=== PATIENT | female | born 1980 | race Caucasian/White ===

== ENCOUNTER → 2016-06-12 | Outpatient (CLI) | payer BC ==
[~2016-06-12] MED LIST: BCPILLS PO; CHOL1CAP57 PO; DICY10CA12 PO; ERGO500037 PO; FLUO0.05 TOP; GLGKIT; INSPMPHMLG; LEVO100T PO; MULTTAB5 PO; OXYC1TAB3 PO; SYN137 PO
[2016-06-12 11:08] LABS: BLOOD UREA NITROGEN 12 mg/dl (7-18); CREATININE 0.87 mg/dl (0.60-1.20)
== END | disposition home or self-care (01) ==
LOC: C.LAB 10:13
PROVIDERS: ATTEND Orthopaedic Surgery
DX: Z01.812 Encounter for preprocedural laboratory examination (principal)

== ENCOUNTER 2017-01-20 22:10 | Emergency (ER) | payer BC, OTHER ==
[~2017-01-20] VITALS: Ht 167.6 cm; Wt 83.9 kg
[~2017-01-20 22:10] MED LIST changes: -BCPILLS PO; -ERGO500037 PO; -OXYC1TAB3 PO; -SYN137 PO
[2017-01-20 22:19] VITALS: TEMP 36.3; Ht 167.6 cm; Wt 83.9 kg
[2017-01-20] MEDS ORDERED: BCPILLS PO (22:53)
[2017-01-20] MEDS ORDERED: ERGO500037 PO (22:53)
[2017-01-20] MEDS ORDERED: SYN137 PO (22:53)
[2017-01-20] MEDS ORDERED: OXYCODONE/ACETAMINOPHEN 5-325 TAB PO STA (23:19)
[2017-01-20] MEDS ORDERED: ONDANSETRON 4MG OD TAB PO STA (23:19)
[2017-01-21] MEDS ORDERED: OXYC1TAB3 PO (01:06)
[2017-01-21 01:13] VITALS: BP 146/85; PULSE 79; O2SAT 99
[2017-01-21] MEDS ORDERED: OXYCODONE IR HOME PACK PO ONE (01:15)
[2017-01-21] MEDS ORDERED: ONDANSETRON HOME PACK 4MG OD TAB PO ONE (01:15)
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
== END 2017-01-21 01:15 | disposition home or self-care (01) ==
LOC: C.EDB 22:12 → C.EDA 01-21 01:15
DX: M54.2 Cervicalgia (principal); R51 Headache; M25.561 Pain in right knee; M25.562 Pain in left knee; V43.52XA Car driver injured in collision with other type car in traffic accident, initial encounter; Z79.899 Other long term (current) drug therapy

== ENCOUNTER → 2017-02-25 | Outpatient (CLI) | payer OTHER ==
[~2017-02-25] MED LIST changes: +BCPILLS PO; -CHOL1CAP57 PO; -DICY10CA12 PO; +ERGO500037 PO; -FLUO0.05 TOP; -LEVO100T PO; +OXYC-737 PO; +SYN137 PO
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
== END | disposition home or self-care (01) ==
LOC: C.MRIBC 13:02
PROVIDERS: ATTEND Internal Medicine
DX: M54.2 Cervicalgia (principal)

== ENCOUNTER → 2017-03-10 | Outpatient (CLI) | payer OTHER ==
[~2017-03-10] MED LIST changes: -OXYC-737 PO; +OXYC1TAB3 PO
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
== END | disposition home or self-care (01) ==
LOC: C.MAMM 11:31
PROVIDERS: ATTEND Physician Assistant
DX: N64.4 Mastodynia (principal)

== ENCOUNTER → 2017-06-02 | Outpatient (CLI) | payer OTHER | END | disposition home or self-care (01) | LOC: C.PAPS 10:22 | PROVIDERS: ATTEND Obstetrics & Gynecology | DX: Z01.419 Encounter for gynecological examination (general) (routine) without abnormal findings (principal) ==

== ENCOUNTER → 2017-06-02 | Outpatient (CLI) | payer OTHER ==
[~2017-06-02] MED LIST changes: +GADAVIST IV PRN
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
== END | disposition home or self-care (01) ==
LOC: C.MRI 13:17
PROVIDERS: ATTEND Physician Assistant
DX: R42 Dizziness and giddiness (principal)

== ENCOUNTER → 2017-06-16 | Outpatient (CLI) | payer OTHER ==
[~2017-06-16] MED LIST changes: -GADAVIST IV PRN
--- NOTE | 2017-06-16 14:27 | DIAGNOSTIC IMAGING REPORT ---
Study: Fusion CT of sinuses HISTORY: Chronic sinusitis. FINDINGS: Moderate mucosal thickening left ethmoid sinuses. Minimal hypertrophic change of the nasal turbinates. All remaining sinuses are clear. Ostiomeatal units are patent bilaterally. No bony destructive process. Orbital margins are intact. IMPRESSION: 1. Moderate mucosal thickening left ethmoid sinuses. 2. Minimal hypertrophic change of the nasal turbinates. Electronically signed by: Esa Smith M.D. 06/16/2017 2:26 PM Dictated Date/Time: 06/16/2017 2:21 PM
== END | disposition home or self-care (01) ==
LOC: C.CTS 13:28
PROVIDERS: ATTEND Physician Assistant
DX: J32.9 Chronic sinusitis, unspecified (principal)

== ENCOUNTER → 2017-09-16 | Outpatient (CLI) | payer OTHER ==
[~2017-09-16] MED LIST changes: -OXYC1TAB3 PO
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
== END | disposition home or self-care (01) ==
LOC: C.CTS 13:19
PROVIDERS: ATTEND Physician Assistant Medical
DX: R51 Headache (principal)

== ENCOUNTER 2019-03-21 17:30 | Observation (INO) ==
--- NOTE | 2019-03-21 18:02 | Emergency Department Note ---
History of Present Illness General Chief complaint: Abdominal Pain Stated complaint: ABD PAIN Time Seen by Provider: 03/21/19 17:42 History of Present Illness Maximum Pain Intensity: 5 This is a 38-year-old female that presents to the emergency department via private vehicle with complaints of "abdominal pain". The patient states that she was referred here by the PCP. She states that this past Wednesday she developed left upper quadrant abdominal discomfort. It is worse with food. She states that it increased during dinner last night as well. She has associated nausea. No vomiting. She states that today she underwent an outpatient CT scan of the abdomen pelvis which was positive for acute appendicitis therefore prompting her arrival here today. She notes that she also had outpatient labs. She rates his overall discomfort as a 5/10. She has a history of type 1 diabetes as well as hypothyroidism. She also has a history of surgeries of C- section x2 as well as history of back surgery. Home Medications Home Medications Medication Instructions Recorded Confirmed Type acetone (urine) test #25 ea 09/08/18 03/21/19 History blood sugar diagnostic #10 ea 09/08/18 03/21/19 History blood-glucose sensor #3 ea 09/08/18 03/21/19 History blood-glucose transmitter #1 ea 09/08/18 03/21/19 History insulin pump cartridge #5 ea 09/08/18 03/21/19 History insulin syringe-needle U-100 1 mL #10 ea 09/08/18 03/21/19 History 31 gauge x /16" levothyroxine 137 mcg tablet 137 mcg PO QAM #90 tab 09/09/18 03/21/19 History calcium carbonate [Tums] 200 mg PO DIRECTED PRN 03/21/19 03/21/19 History ergocalciferol (vitamin D2) 50,000 units PO .Q2WK 03/21/19 03/21/19 History insulin aspart U-100 [Novolog See Rx Instructions .ROUTE .COMPLEX 03/21/19 03/21/19 History U-100 Insulin aspart] norethindrone-e.estradiol-iron 1 tab PO DAILY 03/21/19 03/21/19 History [03/13 ()] Allergies Allergy/AdvReac Type Severity Reaction Status Date / Time latex Allergy Mild ITCH Verified 03/21/19 18:24 levofloxacin Allergy Mild NIGHTMARES Verified 03/21/19 13:58 morphine Allergy Mild HIVES, Verified 03/21/19 18:24 RINGS AROUND EYES/SWELLING,THROAT SWELLING lisinopril Allergy Unknown . Unverified 03/21/19 13:58 Penicillins AdvReac Mild REDMANS Verified 03/21/19 13:58 REACTION Adhesive Tape TAPE Allergy Unknown . Uncoded 03/21/19 18:24 Pertussis Vaccine Allergy Unknown . Uncoded 03/21/19 18:24 Past Med/Surg History Medical History Abdominal pain, acute, left lower quadrant (Acute) Asthma (Acute) Breast pain (Acute) Constipation (Acute) Diabetes mellitus type 1 (Acute 05/13/12) Diabetes mellitus type 1, controlled (Acute) Liana's thyroiditis (Acute) Headache, migraine (Acute) History of hypertension (Acute) Hypothyroidism (Acute) Post-concussion syndrome (Acute) TMJ syndrome (Acute) Type 1 diabetes mellitus with hypoglycemia (Acute) Vitamin D deficiency (Acute) Surgical History H/O section (Acute 05/13/12) History of oral surgery History of oral surgery History of shoulder surgery Family History Mother Cardiomyopathy Lung cancer COPD (chronic obstructive pulmonary disease) Asthma Hypertension Daughter Asthma Brother Asthma Diabetes Unknown Gallbladder disease Osteoporosis Environmental allergies Social History Feels Safe at Home: Yes Smoking Status: Never smoker Review of Systems A total of 10 systems reviewed and were otherwise negative Physical Exam Vital Signs Vital Signs - 24 hr 03/21/19 17:35 Temperature 36.8 C Temperature Source Oral Pulse Rate 89 Pulse Rhythm Regular Pulse Strength Normal Respiratory Rate 20 Respiratory Effort / Characteristics Non-Labored Spontaneous Respiratory Depth Normal Respiratory Pattern Regular Blood Pressure 138/107 H Blood Pressure Mean 117 Blood Pressure Position Sitting Pulse Oximetry 98 Oxygen Delivery Method Room Air Sepsis Recent Fever Within 48 Hours No Sepsis Action Taken by Nursing No Action Required VITAL SIGNS - Vital signs and nursing notes were reviewed. Stable and afebrile. GENERAL -38-year-old female appearing her stated age who is in no acute distress. Communicates well with provider and answers questions appropriately. SKIN - Without rashes. HEAD - NC/AT. EYES - Sclera anicteric. EARS - No deformities of external structures noted on gross examination bilaterally. MOUTH/OROPHARYNX - Without perioral cyanosis. NECK - Neck with FROM. No nuchal rigidity. LUNGS - Chest wall symmetric without accessory muscle use, intercostals retractions, or central cyanosis. Normal vesicular breath sounds CTA B/L. No wheezes, rales, or rhonchi appreciated. CARDIAC - RRR with S1/S2. No murmur, rubs, or gallops appreciated. ABDOMEN - Abdominal contour normal without pulsations or visible masses. BS normoactive all four quadrants. There is generalized abdominal tenderness that is mostly focused in the left upper quadrant region but she also has tenderness in the right lower quadrant. No palpable masses, hepatosplenomegaly, or ascites noted. EXTREMITIES - No clubbing or peripheral cyanosis. NEUROLOGIC - Cranial nerves II through XII grossly intact. PSYCH - A&O, and cooperates fully with examiner. Pt is very pleasant and interacts well with examiner. Course Administered Medications Meperidine HCl (Demerol) 12.5 mg IV Q5M PRN PRN Reason: PACU Use Only-Pain/Shivering Stop: 03/22/19 02:09 Last Admin: 03/21/19 21:16 Dose: 12.5 mg Documented by: [id number] Discontinued Medications Bupivacaine HCl/Epinephrine Bitart (Sensorcaine/Epinephrine 0.5% Mpf 1:200,000) Confirm Administered Dose 30 ml .ROUTE .STK-MED ONE Stop: 03/21/19 19:44 Last Admin: 03/21/19 20:44 Dose: 20 ml Documented by: [id number] Cefoxitin Sodium 2,000 mg/ (Dextrose) 60 mls @ 100 mls/hr IV ONCE STA Stop: 03/21/19 21:20 Last Admin: 03/21/19 20:21 Dose: 100 mls/hr Documented by: [id number] Medical Decision Making Laboratory Data Lab Results 03/21/19 Range/Units Unknown POC Ur Test NEG (NEG) Imaging Data Radiologist's Impression: CT abd pelvis IV con only CT DOSE: 649.47 mGy.cm HISTORY: Pain R10.84 Generalized abdominal pain TECHNIQUE: Multiaxial CT images of the abdomen and pelvis were performed following the use of intravenous contrast. A dose lowering technique was utilized adhering to the principles of ALARA. COMPARISON STUDY: None. FINDINGS: The lung bases are clear. The liver, spleen, gallbladder, pancreas, kidneys, and adrenal glands are within normal limits. No bowel wall thickening or obstruction. The pelvic organs are unremarkable. No suspicious lytic or blastic osseous lesions. The appendix has increased in diameter from the prior study. Has a maximum current diameter of 9 mm. There is a trace amount of periappendiceal infiltrative change. No evidence for abscess collection or obstruction. Trace amount of free fluid within the pelvic cul-de-sac most likely physiologic. Uterus is anteflexed. IMPRESSION: 1. Mild acute appendicitis. 2.It has a maximum diameter 9 mm with a trace amount of periappendiceal infiltrative change. 3. No evidence for abscess collection or obstruction. 4. Study is otherwise unremarkable. ACT 112: Negative or not required by law. The above report was generated using voice recognition software. It may contain grammatical, syntax or spelling errors. Electronically signed by: Esa Smith M.D. 03/21/2019 4:50 PM [facility] Narrative Patient was seen and evaluated as above in room C3. Review was performed of nursing notes and vital signs. After obtaining a thorough history and physical examination the above work up was performed. She presents to us today with abdominal pain. She is nontoxic on exam. She does had an outpatient CT which was positive for acute appendicitis. IV access was established. She declined pain medication. I consulted our surgeon who came to bedside. I reviewed her outpatient labs. Patient will be taken to the operative suite. As the patient was being wheeled down to the operative suite I was notified by the anesthesiologist that patient should be given 15 units of regular insulin IV for the hyperglycemia on the lab work prior to the procedure. I did initially place this order but did go to talk with the patient in PACU and she had a pump in place and a BSG was done and it was in the 100s. The 15 units of insulin was canceled. She will be taken the operative suite for further evaluation and management of the acute appendicitis. Please refer to further documentation regarding her stay. In the evaluation and treatment of this patient the following differential diagnoses were entertained: Obstruction, acute appendicitis, torsion, cholecystitis, gastritis, , UTI, pyelonephritis, pancreatitis, among others. Impression & Plan Acute appendicitis Discharge Plan Visit Data *Final* Discharge Date/Time: 03/21/19 19:30 Chief Complaint: Abdominal Pain Stated Complaint: ABD PAIN ED Provider: Sarah Christina ED Midlevel Provider: Prieto Tipton Discharge Problem: Acute appendicitis Patient Disposition: Admitted As Inpatient Discharge Instructions Interventions: ED Discharge Assessment Last Done: 03/21/19 19:30
--- NOTE | 2019-03-21 19:24 | History & Physical Report ---
Date of Service March 21, 2019 Assessment & Plan (1) Acute appendicitis: Her history and symptoms are not classic for acute appendicitis however with her periumbilical pain with right lower quadrant tenderness as well as a CT scan showing an abnormal appendix I believe the lamar thing would be to perform a laparoscopy with anticipated appendectomy. We also discussed the possible need for an open procedure. We discussed that there is no way to guarantee this is her problem and there is some incidence of negative laparoscopies. We also discussed the option of admission with IV antibiotics with plan for outpatient antibiotics. We also discussed the risks of this which would include worsening symptoms recurrence of appendicitis or perforation of the appendix requiring surgery in the future. We discussed the risks which would include bleeding, infection, injury to another organ, DVT, PE, DC, CVA etc. Following all this I answered their questions. They would like to proceed with laparoscopic appendectomy and surgery as needed tonight and I agree with this decision. We will proceed tonight. History of Present Illness Primary Care Provider: Wilmer Montgomery MD 38-year-old female who is had a 5-day history of abnormal abdominal pain worse after eating. Is been primarily in the mid abdomen. She admittedly is slightly tender in the left upper quadrant as well as the right lower quadrant. No vomiting but some mild nausea at times. She had an outpatient CT scan today which was consistent with acute appendicitis. Allergies Allergy/AdvReac Type Severity Reaction Status Date / Time latex Allergy Mild ITCH Verified 03/21/19 18:24 levofloxacin Allergy Mild NIGHTMARES Verified 03/21/19 13:58 morphine Allergy Mild HIVES, Verified 03/21/19 18:24 RINGS AROUND EYES/SWELLING,THROAT SWELLING lisinopril Allergy Unknown . Unverified 03/21/19 13:58 Penicillins AdvReac Mild REDMANS Verified 03/21/19 13:58 REACTION Adhesive Tape TAPE Allergy Unknown . Uncoded 03/21/19 18:24 Pertussis Vaccine Allergy Unknown . Uncoded 03/21/19 18:24 Home Medications Home Medications Medication Instructions Recorded Confirmed Type acetone (urine) test #25 ea 09/08/18 03/21/19 History blood sugar diagnostic #10 ea 09/08/18 03/21/19 History blood-glucose sensor #3 ea 09/08/18 03/21/19 History blood-glucose transmitter #1 ea 09/08/18 03/21/19 History insulin pump cartridge #5 ea 09/08/18 03/21/19 History insulin syringe-needle U-100 1 mL #10 ea 09/08/18 03/21/19 History 31 gauge x /16" levothyroxine 137 mcg tablet 137 mcg PO QAM #90 tab 09/09/18 03/21/19 History calcium carbonate [Tums] 200 mg PO DIRECTED PRN 03/21/19 03/21/19 History ergocalciferol (vitamin D2) 50,000 units PO .Q2WK 03/21/19 03/21/19 History insulin aspart U-100 [Novolog See Rx Instructions .ROUTE .COMPLEX 03/21/19 03/21/19 History U-100 Insulin aspart] norethindrone-e.estradiol-iron 1 tab PO DAILY 03/21/19 03/21/19 History [June03/13 ()] Past Med/Surg History Medical History (Updated 03/21/19 @ 19:22 by Montrell Buckley, DO) Abdominal pain, acute, left lower quadrant (Acute) Asthma (Acute) Breast pain (Acute) Constipation (Acute) Diabetes mellitus type 1 (Acute 05/13/12) Diabetes mellitus type 1, controlled (Acute) Liana's thyroiditis (Acute) Headache, migraine (Acute) History of hypertension (Acute) Hypothyroidism (Acute) Post-concussion syndrome (Acute) TMJ syndrome (Acute) Type 1 diabetes mellitus with hypoglycemia (Acute) Vitamin D deficiency (Acute) Surgical History (Updated 08/11/18 @ 07:33 by Virgilio Farrell) H/O section (Acute 05/13/12) History of oral surgery History of oral surgery History of shoulder surgery Family History (Updated 08/11/18 @ 07:28 by Virgilio Farrell) Mother Cardiomyopathy Lung cancer COPD (chronic obstructive pulmonary disease) Asthma Hypertension Daughter Asthma Brother Asthma Diabetes Unknown Gallbladder disease Osteoporosis Environmental allergies Social History (Updated 08/11/18 @ 07:31 by Virgilio Farrell) Feels Safe at Home: Yes Smoking Status: Never smoker Review of Systems All systems reviewed & are unremarkable except as noted in HPI & below Physical Exam Constitutional: WD/WN, vitals as above no acute distress and not ill appearing Eyes: PERRL, conjunctivae normal, anicteric sclerae EOM intact bilaterally ENMT: external ear and nose normal, oropharynx normal Ears: no hearing impairment Neck: trachea midline, no thyromegaly Respiratory: normal respiratory effort; no respiratory distress and does not use accessory muscles Cardiovascular: Rate/Rhythm: regular rate and regular rhythm Gastrointestinal (Abdomen): Soft. Positive right lower quadrant tenderness to palpation at McBurney's. Positive Rovsing sign. Mild rebound. Mild mid abdominal to left upper quadrant discomfort with deep palpation as well Skin: no rashes, warm and dry Psychiatric: Orientation: alert, oriented x 3 and cooperative Results & Data Vital Signs (Past 12 Hours) Vital Signs Temp Pulse Resp BP Pulse Ox 03/21/19 17:35 36.8 C 89 20 138/107 H 98
[2019-03-21] MEDS ORDERED: NovoLIN-R INSULIN PER UNIT CHARGE IV STA (19:26)
[2019-03-21] MEDS ORDERED: BUPIVACAINE/EPINEPHRINE 0.5% MPF 1:200,000 10 ML VIAL ONE (19:43)
--- NOTE | 2019-03-21 19:46 | Anesthesiology Consultation ---
Date of Service March 21, 2019 Assessment & Plan Chart Review Chart Review: Acceptable Risk for Surgery and Patient NOT seen in Pre Admission Testing Consults Requested none ASA [id number] Proposed Anesthesia Anesthesia Type: General Risk / Benefits Reviewed With: PT / POA / Parent / Guardian, Accepts Plan and Informed Consent Obtained History Surgery Operation Date: 03/21/19 20:00 Proposed Procedures p Laparoscopic Appendectomy - Montrell Buckley, DO Height/Weight Height: 5 ft 4 in Weight: 89.6 kg Allergies Allergy/AdvReac Type Severity Reaction Status Date / Time latex Allergy Mild ITCH Verified 03/21/19 18:24 levofloxacin Allergy Mild NIGHTMARES Verified 03/21/19 13:58 morphine Allergy Mild HIVES, Verified 03/21/19 18:24 RINGS AROUND EYES/SWELLING,THROAT SWELLING lisinopril Allergy Unknown . Unverified 03/21/19 13:58 Penicillins AdvReac Mild REDMANS Verified 03/21/19 13:58 REACTION Adhesive Tape TAPE Allergy Unknown . Uncoded 03/21/19 18:24 Pertussis Vaccine Allergy Unknown . Uncoded 03/21/19 18:24 Medications Home Medications Medication Instructions Recorded Confirmed Last Taken acetone (urine) test #25 ea 09/08/18 03/21/19 Unknown blood sugar diagnostic #10 ea 09/08/18 03/21/19 Unknown blood-glucose sensor #3 ea 09/08/18 03/21/19 Unknown blood-glucose transmitter #1 ea 09/08/18 03/21/19 Unknown insulin pump cartridge #5 ea 09/08/18 03/21/19 Unknown insulin syringe-needle U-100 1 mL #10 ea 09/08/18 03/21/19 Unknown 31 gauge x 5/16" levothyroxine 137 mcg tablet 137 mcg PO QAM #90 tab 09/09/18 03/21/19 Unknown calcium carbonate [Tums] 200 mg PO DIRECTED PRN 03/21/19 03/21/19 Unknown ergocalciferol (vitamin D2) 50,000 units PO .Q2WK 03/21/19 03/21/19 Unknown insulin aspart U-100 [Novolog See Rx Instructions .ROUTE .COMPLEX 03/21/19 03/21/19 Unknown U-100 Insulin aspart] norethindrone-e.estradiol-iron 1 tab PO DAILY 03/21/19 03/21/19 Unknown [Junel FE 1/20 (28)] NPO Date Last Intake of Fluids: 03/21/19 Time Last Intake of Fluids: 16:30 Date Last Intake of Solids: 03/21/19 Time Last Intake of Solids: 13:00 Past Medical History Medical History Abdominal pain, acute, left lower quadrant (Acute) Asthma (Acute) Breast pain (Acute) Constipation (Acute) Diabetes mellitus type 1 (Acute 05/13/12) Diabetes mellitus type 1, controlled (Acute) Liana's thyroiditis (Acute) Headache, migraine (Acute) History of hypertension (Acute) Hypothyroidism (Acute) Post-concussion syndrome (Acute) TMJ syndrome (Acute) Type 1 diabetes mellitus with hypoglycemia (Acute) Vitamin D deficiency (Acute) Exercise / Class Metabolic Activity II 4-5 Yardwork/Stairs/Walk up hill Past Family History Family History Mother Cardiomyopathy Lung cancer COPD (chronic obstructive pulmonary disease) Asthma Hypertension Daughter Asthma Brother Asthma Diabetes Unknown Gallbladder disease Osteoporosis Environmental allergies Past Surgical History Surgical History H/O section (Acute 05/13/12) History of oral surgery History of oral surgery History of shoulder surgery Past Anesthesia History No Hx of Anesthesia Complications and No Family Hx of Anesthesia Complications History of PONV No Hx of PONV and No Hx of Motion Sickness Social History Smoking Status: Never smoker Physical Exam Vital Signs Last Vital Signs Temp 36.8 C 03/21/19 17:35 Pulse 89 03/21/19 17:35 Resp 20 03/21/19 17:35 BP 138/107 H 03/21/19 17:35 Pulse Ox 98 03/21/19 17:35 Constitutional + obese ENMT Mouth: + small oral opening; no dentition abnormality Thyromental Distance: < 3.5 Finger Breadths Mallampati Class: II Neck normal visual inspection and trachea midline; neck extension not limited Respiratory normal respiratory effort Auscultation: lungs clear to auscultation bilaterally Cardiovascular Rate/Rhythm: regular rate and regular rhythm Heart Sounds: + murmur Musculoskeletal Spine: normal cervical ROM Neurologic moves all extremities Motor/Sensory: no sensory deficit Psychiatric Orientation: alert and oriented x 3 Testing Laboratory Results 03/21/19 Unknown POC Ur Test NEG
[2019-03-21] MEDS ORDERED: PROPOFOL IV EMULSION 10 MG/ML 20 ML VIAL IV ONE (19:53)
[2019-03-21] MEDS ORDERED: SUCCINYLCHOLINE 100MG/5ML SYR ONE (19:54)
[2019-03-21] MEDS ORDERED: MIDAZOLAM HCL 1 MG/ML 2ML VIAL ONE (19:55)
[2019-03-21] MEDS ORDERED: fentaNYL citrate 100 MCG/2 ML VIAL ONE ×3 (19:55→21:28)
[2019-03-21] MEDS ORDERED: ONDANSETRON INJ 2 MG/ML 2 ML VIAL ONE ×2 (20:35→21:31)
[2019-03-21] MEDS ORDERED: DEXAMETHASONE SOD INJ 4 MG/ML VIAL ONE (20:35)
[2019-03-21] MEDS ORDERED: GLYCOPYRROLATE 0.2 MG/ML VIAL ONE (20:37)
[2019-03-21] MEDS ORDERED: NEOSTIGMINE METHYLSULFATE 5 MG/5 ML SYR ONE (20:37)
[2019-03-21] MEDS ORDERED: cefOXitin 2,000 MG in DEXTROSE 5% 50 ML IV STA (20:45)
[2019-03-21] MEDS ORDERED: LABETALOL HCL IV 5 MG/ML 20ML IV PRN (21:08)
[2019-03-21] MEDS ORDERED: FLUMAZENIL 0.1 MG/1 ML 10 ML VIAL IV PRN (21:08)
[2019-03-21] MEDS ORDERED: ATROPINE SULFATE 0.1 MG/ML 10ML SYR IV PRN (21:08)
[2019-03-21] MEDS ORDERED: NALOXONE HCL 0.4 MG/1 ML VIAL/CARP IV PRN (21:08)
[2019-03-21] MEDS ORDERED: ONDANSETRON INJ 2 MG/ML 2 ML VIAL IV PRN ×2 (21:08→22:20)
[2019-03-21] MEDS ORDERED: ePHEDrine sulfate 50 MG/ML AMP IV PRN (21:08)
[2019-03-21] MEDS ORDERED: PROMETHAZINE HCL 12.5 MG in SODIUM CHLORIDE 0.9% 50 ML IV PRN (21:08)
[2019-03-21] MEDS ORDERED: MEPERIDINE HCL 25 MG/ML CARP IV PRN (21:08)
[2019-03-21] MEDS ORDERED: MEPERIDINE HCL 25 MG/ML CARP ONE (21:15)
--- NOTE | 2019-03-21 21:15 | Operative Report ---
PG Post Operative Report Pre & Post Diagnosis Operation Date: 03/21/19 20:00 Pre-Op Diagnosis: Acute Appendicitis Post-Op Diagnosis: Acute Appendicitis I identified the patient and participated in the time-out.: Yes Procedure Operation Date: 03/21/19 20:00 Actual Procedures p Laparoscopic Appendectomy(Not Applicable) - Montrell Buckley DO Surgeon Montrell Buckley DO Cosmetic Account Coordinator n/a Estimated Blood Loss 5 Findings Consistent with Post-Op Diagnosis Specimens appendix Description of Procedure After informed consent was obtained the patient was taken to the operating room and placed in supine position. After successful intubation a Linares catheter was placed and the left arm was tucked. A Linares catheter was inserted sterilely. I began by making a periumbilical incision with an 11 blade scalpel and carried this down through the soft tissue using electrocautery. The anterior rectus fascia was opened using electrocautery and 2 #0 Vicryl stay sutures were placed. The peritoneum was elevated using hemostats and incised under direct vision using a Metzenbaum scissor. A finger sweep was performed. A 12 mm [place] trocar was placed and the abdomen was insufflated to 18 mmHg. A laparoscope was inserted and the abdomen was examined in 360. A suprapubic 5 mm port and a left lower quadrant 12 mm port were placed under direct vision. The patient was air planed to the left as well as placed in a slight Trendelenburg position. We began by looking in the right lower quadrant. We were able to readily identify the appendix and it was grossly inflamed. It had not perforated. There is a small amount of purulent fluid in the right lower quadrant and the pelvis. We immediately irrigated and suctioned this out. I was able to use primarily blunt dissection to pull the appendix away from the right lower quadrant sidewall. I was then able to use a ULICES brown cartridge stapler to transect both the mesente ry of the appendix as well as the appendix itself at its base with the cecum. It was then placed into an Endo Catch bag and removed from the camera port site. We thoroughly irrigated the right lower quadrant as well as the pelvis. There was adequate hemostasis. I ran the small bowel backwards from the terminal ileum for about 6 feet all of which was normal. All the peritoneal surfaces were normal. Small/ large bowel, liver, stomach etc. all appeared grossly normal. We did a final irrigation and then removed all the trochars and desufflated the abdomen. The fascia of the camera port as well as the left lower quadrant were closed using 0 Vicryl in [id number] fashion. Wounds were all irrigated and closed using 4-0 Monocryl. Marcaine was injected around them for postoperative analgesia and skin glue used as a dressing. The patient was awakened extubated and transferred to recovery in stable condition. I attest to the content of the Intraoperative Record and any orders documented therein. Any exceptions are noted below.
[2019-03-21] MEDS: fentaNYL citrate 100 MCG/2 ML VIAL IV PRN ×3 (21:29→21:39)
--- NOTE | 2019-03-21 21:40 | Anesthesiology Progress Note ---
Date of Service March 21, 2019 Anesthesia Post Procedure Vital Signs Vital Signs: Temp Pulse Pulse Resp BP BP Pulse Ox 03/21/19 21:35 69 12 157/90 H 100 03/21/19 21:25 81 13 139/93 100 03/21/19 21:15 80 12 158/88 H 100 03/21/19 21:06 36.0 C L 110 H 19 166/105 H 100 03/21/19 17:35 36.8 C 89 20 138/107 H 98 Pain Intensity Abdomen: Pain Intensity: 4 Transfer of Care Handoff Completed per policy Notes Mental Status: alert / awake / arousable Patient Amnestic to Procedure: Yes Nausea / Vomiting: adequately controlled Pain: adequately controlled Airway Patency, RR, SpO2: stable & adequate BP & HR: stable & adequate Hydration State: stable & adequate Anesthetic Complications: no major complications apparent
[2019-03-21] MEDS ORDERED: HYDROmorphone INJ 1 MG/ML SYRINGE IV PRN ×2 (22:20)
[2019-03-21] MEDS ORDERED: CEFAZOLIN 1000MG 1,000 MG/7.5 ML SYR IV SCH (22:20)
[2019-03-21] MEDS ORDERED: IBUPROFEN 600 MG TAB PO PRN (22:20)
[2019-03-21] MEDS ORDERED: OXYCODONE HCL IR 5 MG TAB (IMMEDIATE RELEASE) PO PRN (22:20)
[2019-03-21] MEDS ORDERED: PNEUMOCOCCAL ADMINISTRATION CHARGE ONE (22:45)
[2019-03-21] MEDS ORDERED: PNEUMOCOCCAL POLYSACCHARIDES 25 MCG/0.5 ML VIAL/SYR IM ONE (22:45)
[2019-03-21] MEDS: SODIUM CHLORIDE 0.9% 1000ML 1,000 ML IV SCH (22:50)
[2019-03-21] MEDS: ACETAMINOPHEN 1,000 MG/100 ML VIAL IV SCH (22:50)
[2019-03-21] MEDS: OXYCODONE HCL IR 5 MG TAB (IMMEDIATE RELEASE) PO PRN (23:19)
[2019-03-22] MEDS: OXYCODONE HCL IR 5 MG TAB (IMMEDIATE RELEASE) PO PRN (03:52)
[2019-03-22] MEDS: ACETAMINOPHEN 1,000 MG/100 ML VIAL IV SCH (05:36)
[2019-03-22] MEDS: SODIUM CHLORIDE 0.9% 1000ML 1,000 ML IV SCH (05:37)
--- NOTE | 2019-03-27 09:51 | Discharge Summary ---
Date of Service March 27, 2019 Admission HPI Per Admitting Provider 38-year-old female who is had a 5-day history of abnormal abdominal pain worse after eating. Is been primarily in the mid abdomen. She admittedly is slightly tender in the left upper quadrant as well as the right lower quadrant. No vomiting but some mild nausea at times. She had an outpatient CT scan today which was consistent with acute appendicitis. Principal Diagnosis Acute appendicitis Discharge Exam Gastrointestinal (Abdomen) Inspection/Auscultation: + abdominal surgical incision (clean, dry) Percussion/Palpation: abdomen soft Discharge Data Allergies Allergy/AdvReac Type Severity Reaction Status Date / Time latex Allergy Mild ITCH Verified 03/21/19 18:24 levofloxacin Allergy Mild NIGHTMARES Verified 03/21/19 13:58 morphine Allergy Mild HIVES, Verified 03/21/19 18:24 RINGS AROUND EYES/SWELLING,THROAT SWELLING lisinopril Allergy Unknown . Unverified 03/21/19 13:58 Penicillins AdvReac Mild REDMANS Verified 03/21/19 13:58 REACTION Adhesive Tape TAPE Allergy Unknown . Uncoded 03/21/19 18:24 Pertussis Vaccine Allergy Unknown . Uncoded 03/21/19 18:24 Procedures Performed Operation Date: 03/21/19 20:00 Actual Procedures p Laparoscopic Appendectomy(Not Applicable) - Montrell Buckley DO Hospital Course (1) Acute appendicitis: 38 y/o female with several day history of abdominal pain presented to ED with normal white blood cell count but CT suggesting early appendicitis. She was taken to the operating room for laparoscopic appendectomy and transferred to the surgical floor for overnight observation. In the morning she was able to advance diet and tolerate oral analgesics. She was stable for discharge. Total Time Total Time Spent Total Time Spent (In Minutes): 10 Discharge Plan Discharge Items Patient Disposition: Home - Self-Care Reason For Visit: APPENDICITIS Discharge Diagnosis: laparoscopic appendectomy Activity: As commented below Lifting: No more than 10 pounds Bathing: No limitations Driving/Machine Use: Resume 3 days after discharge Non-emergency contact: Surgeon Call non-emergency contact if: you have any medication questions, your pain is not controlled, you have a fever, your temperature is above 101.5, your wound has increased redness and your wound has increased drainage Follow-up/Referrals: Wilmer Montgomery III, MD [Primary Care Provider] - Buckley,Montrell D., DO [Surgeon] - (Call to make an appt in 1-2 weeks) Diet: Regular Addtl Attending Provider Instructions: Pending Studies at Discharge: No Stand-Alone Forms: Call Back Authorization, My [facility], Work/School Release (Inpt), Smoking Cessation Medications and DC Order Prescriptions: New oxycodone-acetaminophen [Percocet] 5-325 mg tablet 1 - 2 tab PO Q4H PRN (Reason: pain, initial therapy, max 8 daily) Qty: 15 RF: 0 Continued (DME) Omnipod Dash Insulin Pod cartridge See Dose Instructions .ROUTE .MEDSUPPLY Qty: 5 RF: 0 (DME) FreeStyle Test strip See Dose Instructions .ROUTE .MEDSUPPLY Qty: 10 RF: 0 (DME) Dexcom G5 Transmitter device See Dose Instructions .ROUTE .MEDSUPPLY Qty: 1 RF: 0 (DME) insulin syringe-needle U-100 [BD Insulin Syringe Ultra-Fine] 1 mL 31 gauge x 5/16 syringe See Dose Instructions .ROUTE .MEDSUPPLY Qty: 10 RF: 0 (DME) Ketone Urine Test strip See Dose Instructions .ROUTE .MEDSUPPLY Qty: 25 RF: 0 (DME) Dexcom G5-G4 Sensor device See Dose Instructions .ROUTE .MEDSUPPLY Qty: 3 RF: 0 levothyroxine 137 mcg tablet 137 mcg PO QAM Qty: 90 RF: 0 norethindrone-e.estradiol-iron [Junel FE 03/13 (28)] 1 mg-20 mcg (21)/75 mg (7) tablet 1 tab PO DAILY RF: 0 insulin aspart U-100 [Novolog U-100 Insulin aspart] 100 unit/mL solution See Rx Instructions .ROUTE .COMPLEX RF: 0 ergocalciferol (vitamin D2) 1,250 mcg (50,000 unit) capsule 50,000 units PO .Q2WK RF: 0 calcium carbonate [Tums] 200 mg calcium (500 mg) Tablet,Chewable 200 mg PO DIRECTED PRN (Reason: Indigestion) RF: 0 Discharge Orders: Discharge Order (Routine); Ordered 03/22/19 Ordered By: Ephraim Valle Admission Data Admit Date/Time: 03/21/19 21:14 Attending Provider: Montrell Buckley Admit Provider: Montrell Buckley Primary Care Provider: Wilmer Montgomery III Other Interventions: Discharge Summary Assessment (RN) Last Done: 03/22/19 09:20 DC Date/Time DO NOT enter until pt leaves facility: 03/22/19 10:05 Coding Level of Care Code D/C Day Management <30 mins Diagnoses Acute appendicitis K35.80
== END 2019-03-22 10:05 | disposition home or self-care (01) ==
LOC: ED 17:30 → 3N 19:30 → OR 19:30